=== PATIENT | male | born 1945 | race Caucasian/White ===

== ENCOUNTER → 2020-12-29 | Outpatient (CLI) | payer OTHER, BC ==
--- NOTE | 2021-01-01 09:10 | SLE ---
[facility] [place] [address] POLYSOMNOGRAPHY STUDY Name: AZAM EMANUEL Room #: REG [facility]#: [id number] Admission: 12/29/20 Attend Phys: Kennedy Serrano MD Discharge: Date of : 45 Report #: [id number] THIS REPORT FOR: cc: Physician not on staff Physician not on staff Kennedy Serrano MD ~ cc: Anuel Raygoza MD DATE OF SERVICE: 12/29/2020 ATTENDING PHYSICIAN: Dr. Anuel Raygoza. The patient is 75 years old who weighs 200 pounds with a BMI of 32.3. The patient's [place] score was 20 suggesting severe subjective hypersomnia. The patient underwent diagnostic sleep study performed at [facility]. During the night study, the patient spent 398 minutes in bed and slept for 384 minutes with a sleep efficiency of 77%. Sleep latency was 30.9 minutes with an absent REM sleep. Overall, sleep architecture showed increased stage I sleep as well as stage II sleep. Absent N3 sleep and absent REM sleep. During the night of study, the patient had 12 obstructive apneas, 1 mixed apnea, no central apneas and 105 hypopneas. The patient's AHI was 18.4 per hour. REM sleep was not observed. Supine AHI was 77.8 per hour. EKG monitoring revealed an average heart rate of 69 beats per minute. PVCs were seen throughout including bigeminy. PLMS were seen at an index of 6 per hour and none per hour caused EEG arousals. Nocturnal oximetry study revealed an average oxygen saturation of 94% with a lowest of 78%. 23 minutes were spent with oxygen saturation less than 89%. The patient did meet the split night criteria for CPAP initiation, but it was late in the night as a result CPAP could not be initiated. IMPRESSION: 1. Moderate obstructive sleep apnea with worsening during supine sleep. Total AHI 18.4 per hour with a supine AHI of 77.8 per hour. Absence of REM sleep can underestimate the severity of sleep apnea. 2. Nocturnal hypoxia secondary to obstructive sleep apnea. 3. Abnormal EKG resulting in PVCs throughout and bigeminy. 4. No significant periodic limb movements in sleep. RECOMMENDATIONS: 1. The patient should return to the sleep lab for in-lab CPAP titration study. [address] [address] POLYSOMNOGRAPHY STUDY Name: AZAM EMANUEL Room #: REG [facility].#: [id number] Admission: 12/29/20 Attend Phys: Kennedy Serrano MD Discharge: Date of : 45 Report #: [id number] Alternatively home auto CPAP can be set up. 2. Once the patient is optimally treat with CPAP and follow up in 4 to 6 weeks to assess compliance and to document clinical improvement. 3. Weight loss is advised. 4. Avoid CHIEF RELAY TESTER depressants. 5. Cautioned regarding driving until symptoms of sleep apnea resolve with the above recommendation. 6. Avoid supine sleep. 7. Follow up with Cardiology regarding abnormal EKG if clinically indicated. <ELECTRONICALLY SIGNED> By: Kennedy Serrano MD 01/01/21 0910 [id number] Kennedy Serrano MD /nt
== END ==
LOC: SLEEPLAB 11-09 16:52
PROVIDERS: ATTEND Internal Medicine Critical Care Medicine
DX: G47.33 Obstructive sleep apnea (adult) (pediatric) (principal)